=== PATIENT | male | born 1970 | race African-American/Black ===

== ENCOUNTER 2018-03-08 16:20 | Emergency (ER) | payer OTHER ==
[~2018-03-08] VITALS: Ht 185.4 cm; Wt 106.3 kg
[2018-03-08 18:44] LABS: HEMATOCRIT 43.9 % (38.0-50.0); HEMOGLOBIN 15.2 G/DL (12.5-16.6); MCH 30.9 PG (29.0-34.0); MCHC 34.6 G/DL (30.0-36.0); MCV 89.2 FL (86-99); PLATELET COUNT 215 K/uL (156-360); RBC DIS.WIDTH-CV 12.4 % (11.8-14.6); RBC DIS.WIDTH-SD 41.1 % (39-53); RED BLOOD COUNT 4.92 M/uL (4.00-5.50)
[2018-03-08] MEDS ORDERED: PERCOCET 5/31 TABLET PO (18:47)
[2018-03-08] MEDS ORDERED: MOTRIN600 MG PO (18:47)
[2018-03-08 18:56] LABS: CHLORIDE 101 mEq/L (99-109); POTASSIUM 4.2 mEq/L (3.7-5.4); SODIUM 141 mEq/L (136-147)
[2018-03-08 18:58] LABS: GLUCOSE 89 mg/dL (70-99)
[2018-03-08 19:02] LABS: CREATININE 1.1 mg/dL (0.6-1.3)
[2018-03-08 19:03] LABS: UREA NITROGEN (BUN) 10 mg/dL (9-23)
[2018-03-08 19:04] LABS: TROP-I INTERPRETATION NEGATIVE; TROPONIN-I < 0.01 ng/mL (0.0-0.30)
[2018-03-08 19:11] LABS: GFR ESTIMATE (CALCULATED) > 59 mL/min/ (58.99-99999)
[2018-03-08 19:33] VITALS: BP 135/92
== END 2018-03-08 19:34 | disposition home or self-care (01) ==
LOC: EME 16:20 → RME 16:20
PROVIDERS: Physician Assistant
DX: S22.20XA Unspecified fracture of sternum, initial encounter for closed fracture (principal); V43.52XA Car driver injured in collision with other type car in traffic accident, initial encounter; Y92.410 Unspecified street and highway as the place of occurrence of the external cause; F17.200 Nicotine dependence, unspecified, uncomplicated
CPT/HCPCS: 71250; 80048; 84484; 85027; 93005; 99281; 99284